=== PATIENT | male | born 1945 | race Caucasian/White ===

== ENCOUNTER 2019-01-14 09:59 | Emergency (ER) | payer MEDICARE ==
[~2019-01-14] VITALS: Ht 172.7 cm; Wt 90.7 kg
[2019-01-14] MEDS ORDERED: XARELTO (10:03)
--- NOTE | 2019-01-14 10:39 | NUR ---
Patient discharged to home in stable conditon. Written and verbal after care instructions given to patient and family. Patient and family verbalized understanding of instructions.
== END 2019-01-14 10:42 | disposition home or self-care (01) ==
LOC: ER 09:59
DX: I83.891 Varicose veins of right lower extremity with other complications (principal); Z79.01 Long term (current) use of anticoagulants
CPT/HCPCS: A4663